=== PATIENT | male | born 1970 | race African-American/Black ===

== ENCOUNTER 2017-09-14 20:27 | Emergency (ER) | payer SELFPAY ==
[~2017-09-14] VITALS: Ht 182.9 cm; Wt 98.7 kg
[2017-09-14 21:04] LABS: CHLORIDE 101 mEq/L (99-109); POTASSIUM 4.5 mEq/L (3.7-5.4); SODIUM 139 mEq/L (136-147)
[2017-09-14 21:06] LABS: GLUCOSE 104 mg/dL (70-99)
[2017-09-14 21:10] LABS: CREATININE 1.1 mg/dL (0.6-1.3); GFR ESTIMATE (CALCULATED) > 59 mL/min/ (58.99-99999)
[2017-09-14 21:11] LABS: UREA NITROGEN (BUN) 12 mg/dL (9-23)
[2017-09-14 21:14] LABS: HEMATOCRIT 40.3 % (38.0-50.0); HEMOGLOBIN 13.7 G/DL (12.5-16.6); MCH 30.8 PG (29.0-34.0); MCV 90.6 FL (86-99); PLATELET COUNT 292 K/uL (156-360); RBC DIS.WIDTH-CV 13.6 % (11.8-14.6); RBC DIS.WIDTH-SD 45.2 % (39-53); RED BLOOD COUNT 4.45 M/uL (4.00-5.50); WHITE BLOOD COUNT 6.8 K/uL (4.1-10.2)
[2017-09-14 22:16] LABS: ALBUMIN 4.3 g/dL (3.2-4.8)
[2017-09-14] MEDS ORDERED: BACTRIM,SEPT1 TABLET PO (22:18)
[2017-09-14] MEDS ORDERED: KEFLEX500 MG PO (22:18)
[2017-09-14 22:19] LABS: TOTAL PROTEIN 7.9 g/dL (6.4-8.3)
[2017-09-14 22:21] LABS: TOTAL BILIRUBIN 0.4 mg/dL (0.0-1.0)
[2017-09-14 22:22] LABS: ALKALINE PHOSPHATASE 123 IU/L (3-129)
[2017-09-14 22:24] LABS: AST (GOT) 27 IU/L (2-34)
[2017-09-14 22:25] LABS: ALT (GPT) 32 IU/L (3-49); DIRECT BILIRUBIN 0.1 mg/dL (0.0-0.3)
[2017-09-14 23:08] VITALS: BP 107/78
== END 2017-09-14 23:09 | disposition home or self-care (01) ==
LOC: EME 20:27 → RME 20:27
DX: L03.115 Cellulitis of right lower limb (principal); L03.116 Cellulitis of left lower limb; F17.200 Nicotine dependence, unspecified, uncomplicated
CPT/HCPCS: 80048; 80076; 83880; 85027; 93005; 99281; 99284; J0696